=== PATIENT | male | born 1945 | race Caucasian/White ===

== ENCOUNTER 2017-09-03 19:14 | Outpatient (CLI) | payer MEDICARE | END 2017-09-03 19:15 | disposition short-term general hospital (02) | LOC: EMS 19:14 | PROVIDERS: ATTEND Surgery | DX: R55 Syncope and collapse (principal) | CPT/HCPCS: A0170; A0425; A0427 ==

== ENCOUNTER 2020-04-23 12:56 | Outpatient (CLI) | payer MEDICARE | END 2020-04-23 12:57 | disposition home or self-care (01) | LOC: COV 12:56 | PROVIDERS: ATTEND Family Medicine | DX: R50.9 Fever, unspecified (principal); Z20.828 Contact with and (suspected) exposure to other viral communicable diseases; R05 Cough; R06.02 Shortness of breath; M79.10 Myalgia, unspecified site; R53.83 Other fatigue; J02.9 Acute pharyngitis, unspecified; R09.81 Nasal congestion ==

== ENCOUNTER 2021-04-17 17:02 | Outpatient (CLI) | payer MEDICARE | END 2021-04-17 17:03 | disposition short-term general hospital (02) | LOC: EMS 17:02 | DX: R47.81 Slurred speech (principal); R29.898 Other symptoms and signs involving the musculoskeletal system; R29.810 Facial weakness; R41.89 Other symptoms and signs involving cognitive functions and awareness | CPT/HCPCS: A0425; A0427 ==

== ENCOUNTER 2021-06-20 07:57 | Outpatient (CLI) | payer MEDICARE | END 2021-06-20 07:58 | disposition home or self-care (01) | LOC: LAB.S 07:57 | PROVIDERS: ATTEND Internal Medicine Cardiovascular Disease | DX: I48.91 Unspecified atrial fibrillation (principal); I63.412 Cerebral infarction due to embolism of left middle cerebral artery | CPT/HCPCS: 36416; 85610 ==

== ENCOUNTER 2021-06-23 08:04 | Outpatient (CLI) | payer MEDICARE | END 2021-06-23 08:05 | disposition home or self-care (01) | LOC: LAB.S 08:04 | PROVIDERS: ATTEND Internal Medicine Cardiovascular Disease | DX: I48.91 Unspecified atrial fibrillation (principal); I63.412 Cerebral infarction due to embolism of left middle cerebral artery | CPT/HCPCS: 36416; 85610 ==

== ENCOUNTER 2021-06-27 10:02 | Outpatient (CLI) | payer MEDICARE | END 2021-06-27 10:03 | disposition home or self-care (01) | LOC: LAB.S 10:02 | PROVIDERS: ATTEND Internal Medicine Cardiovascular Disease | DX: I48.91 Unspecified atrial fibrillation (principal); I63.412 Cerebral infarction due to embolism of left middle cerebral artery | CPT/HCPCS: 36416; 85610 ==

== ENCOUNTER 2021-07-02 07:32 | Outpatient (CLI) | payer MEDICARE | END 2021-07-02 07:33 | disposition home or self-care (01) | LOC: LAB.S 07:32 | PROVIDERS: ATTEND Internal Medicine Cardiovascular Disease | DX: I48.91 Unspecified atrial fibrillation (principal); I63.412 Cerebral infarction due to embolism of left middle cerebral artery | CPT/HCPCS: 36416; 85610 ==

== ENCOUNTER 2021-07-07 07:33 | Outpatient (CLI) | payer MEDICARE | END 2021-07-07 07:34 | disposition home or self-care (01) | LOC: LAB.S 07:33 | PROVIDERS: ATTEND Internal Medicine Cardiovascular Disease | DX: I48.91 Unspecified atrial fibrillation (principal); I63.412 Cerebral infarction due to embolism of left middle cerebral artery | CPT/HCPCS: 36416; 85610 ==

== ENCOUNTER 2021-07-11 10:08 | Outpatient (CLI) | payer MEDICARE | END 2021-07-11 10:09 | disposition home or self-care (01) | LOC: LAB.S 10:08 | PROVIDERS: ATTEND Internal Medicine Cardiovascular Disease | DX: I48.91 Unspecified atrial fibrillation (principal); I63.412 Cerebral infarction due to embolism of left middle cerebral artery | CPT/HCPCS: 36416; 85610 ==

== ENCOUNTER 2021-07-18 08:00 | Outpatient (CLI) | payer MEDICARE | END 2021-07-18 23:59 | disposition home or self-care (01) | LOC: LAB.S 08:00 | PROVIDERS: ATTEND Internal Medicine Cardiovascular Disease | DX: I48.91 Unspecified atrial fibrillation (principal); I63.412 Cerebral infarction due to embolism of left middle cerebral artery | CPT/HCPCS: 36416; 85610 ==

== ENCOUNTER 2021-08-07 07:50 | Outpatient (CLI) | payer MEDICARE | END 2021-08-07 07:51 | disposition home or self-care (01) | LOC: LAB.S 07:50 | PROVIDERS: ATTEND Internal Medicine Cardiovascular Disease | DX: I48.91 Unspecified atrial fibrillation (principal); I63.412 Cerebral infarction due to embolism of left middle cerebral artery | CPT/HCPCS: 36416; 85610 ==

== ENCOUNTER 2021-09-04 08:01 | Outpatient (CLI) | payer MEDICARE | END 2021-09-04 08:02 | disposition home or self-care (01) | LOC: LAB.S 08:01 | PROVIDERS: ATTEND Internal Medicine Cardiovascular Disease | DX: I48.91 Unspecified atrial fibrillation (principal); I63.412 Cerebral infarction due to embolism of left middle cerebral artery | CPT/HCPCS: 36416; 85610 ==

== ENCOUNTER 2021-10-02 07:22 | Outpatient (CLI) | payer MEDICARE | END 2021-10-02 07:23 | disposition home or self-care (01) | LOC: LAB.S 07:22 | PROVIDERS: ATTEND Internal Medicine Cardiovascular Disease | DX: I48.91 Unspecified atrial fibrillation (principal); I63.412 Cerebral infarction due to embolism of left middle cerebral artery | CPT/HCPCS: 36416; 85610 ==

== ENCOUNTER 2021-11-04 07:24 | Outpatient (CLI) | payer MEDICARE | END 2021-11-04 07:25 | disposition home or self-care (01) | LOC: LAB.S 07:24 | PROVIDERS: ATTEND Internal Medicine Cardiovascular Disease | DX: I48.91 Unspecified atrial fibrillation (principal); I63.412 Cerebral infarction due to embolism of left middle cerebral artery | CPT/HCPCS: 36416; 85610 ==

== ENCOUNTER 2021-12-04 07:24 | Outpatient (CLI) | payer MEDICARE | END 2021-12-04 07:25 | disposition home or self-care (01) | LOC: LAB.S 07:24 | PROVIDERS: ATTEND Internal Medicine Cardiovascular Disease | DX: I48.91 Unspecified atrial fibrillation (principal); I63.412 Cerebral infarction due to embolism of left middle cerebral artery | CPT/HCPCS: 36416; 85610 ==

== ENCOUNTER 2022-01-20 07:19 | Outpatient (CLI) | payer MEDICARE | END 2022-01-20 07:20 | disposition home or self-care (01) | LOC: LAB.S 07:19 | PROVIDERS: ATTEND Internal Medicine Cardiovascular Disease | DX: I48.91 Unspecified atrial fibrillation (principal); I63.412 Cerebral infarction due to embolism of left middle cerebral artery | CPT/HCPCS: 36416; 85610 ==

== ENCOUNTER 2022-03-03 07:15 | Outpatient (CLI) | payer MEDICARE | END 2022-03-03 07:16 | disposition home or self-care (01) | LOC: LAB.S 07:15 | PROVIDERS: ATTEND Internal Medicine Cardiovascular Disease | DX: I48.91 Unspecified atrial fibrillation (principal); I63.412 Cerebral infarction due to embolism of left middle cerebral artery | CPT/HCPCS: 36416; 85610 ==

== ENCOUNTER 2022-03-27 07:16 | Outpatient (CLI) | payer MEDICARE | END 2022-03-27 07:17 | disposition home or self-care (01) | LOC: LAB.S 07:16 | PROVIDERS: ATTEND Internal Medicine Cardiovascular Disease | DX: I48.91 Unspecified atrial fibrillation (principal); I63.412 Cerebral infarction due to embolism of left middle cerebral artery | CPT/HCPCS: 36416; 85610 ==

== ENCOUNTER 2022-05-06 07:16 | Outpatient (CLI) | payer MEDICARE | END 2022-05-06 07:17 | disposition home or self-care (01) | LOC: LAB.S 07:16 | PROVIDERS: ATTEND Internal Medicine Cardiovascular Disease | DX: I48.91 Unspecified atrial fibrillation (principal); I63.412 Cerebral infarction due to embolism of left middle cerebral artery | CPT/HCPCS: 36416; 85610 ==

== ENCOUNTER 2022-05-22 07:16 | Outpatient (CLI) | payer MEDICARE | END 2022-05-22 07:17 | disposition home or self-care (01) | LOC: LAB.S 07:16 | PROVIDERS: ATTEND Internal Medicine Cardiovascular Disease | DX: I48.91 Unspecified atrial fibrillation (principal); I63.412 Cerebral infarction due to embolism of left middle cerebral artery | CPT/HCPCS: 36416; 85610 ==

== ENCOUNTER 2022-07-01 07:19 | Outpatient (CLI) | payer MEDICARE | END 2022-07-01 07:20 | disposition home or self-care (01) | LOC: LAB.S 07:19 | PROVIDERS: ATTEND Internal Medicine Cardiovascular Disease | DX: I48.91 Unspecified atrial fibrillation (principal); I63.412 Cerebral infarction due to embolism of left middle cerebral artery | CPT/HCPCS: 36416; 85610 ==

== ENCOUNTER 2022-08-12 07:09 | Outpatient (CLI) | payer MEDICARE | END 2022-08-12 07:10 | disposition home or self-care (01) | LOC: LAB.S 07:09 | PROVIDERS: ATTEND Internal Medicine Cardiovascular Disease | DX: I48.91 Unspecified atrial fibrillation (principal); I63.412 Cerebral infarction due to embolism of left middle cerebral artery | CPT/HCPCS: 36416; 85610 ==

== ENCOUNTER 2022-09-23 07:22 | Outpatient (CLI) | payer MEDICARE | END 2022-09-23 07:23 | disposition home or self-care (01) | LOC: LAB.S 07:22 | PROVIDERS: ATTEND Internal Medicine Cardiovascular Disease | DX: I48.91 Unspecified atrial fibrillation (principal); I63.412 Cerebral infarction due to embolism of left middle cerebral artery | CPT/HCPCS: 36416; 85610 ==

== ENCOUNTER 2022-10-07 07:29 | Outpatient (CLI) | payer MEDICARE | END 2022-10-07 07:30 | disposition home or self-care (01) | LOC: LAB.S 07:29 | PROVIDERS: ATTEND Internal Medicine Cardiovascular Disease | DX: I48.91 Unspecified atrial fibrillation (principal); I63.412 Cerebral infarction due to embolism of left middle cerebral artery | CPT/HCPCS: 36416; 85610 ==

== ENCOUNTER 2022-11-05 07:05 | Outpatient (CLI) | payer MEDICARE | END 2022-11-05 07:06 | disposition home or self-care (01) | LOC: LAB.S 07:05 | PROVIDERS: ATTEND Internal Medicine Cardiovascular Disease | DX: I48.91 Unspecified atrial fibrillation (principal); I63.412 Cerebral infarction due to embolism of left middle cerebral artery | CPT/HCPCS: 36416; 85610 ==

== ENCOUNTER 2022-12-03 09:10 | Outpatient (CLI) | payer MEDICARE | END 2022-12-03 09:11 | disposition home or self-care (01) | LOC: LAB.S 09:10 | PROVIDERS: ATTEND Internal Medicine Cardiovascular Disease | DX: I48.91 Unspecified atrial fibrillation (principal); I63.412 Cerebral infarction due to embolism of left middle cerebral artery | CPT/HCPCS: 36416; 85610 ==

== ENCOUNTER 2023-01-14 09:49 | Outpatient (CLI) | payer MEDICARE | END 2023-01-14 09:50 | disposition home or self-care (01) | LOC: LAB.S 09:49 | PROVIDERS: ATTEND Internal Medicine Cardiovascular Disease | DX: I48.91 Unspecified atrial fibrillation (principal); I63.412 Cerebral infarction due to embolism of left middle cerebral artery | CPT/HCPCS: 36416; 85610 ==

== ENCOUNTER 2023-03-04 10:39 | Outpatient (CLI) | payer MEDICARE | END 2023-03-04 10:40 | disposition home or self-care (01) | LOC: LAB.S 10:39 | PROVIDERS: ATTEND Internal Medicine Cardiovascular Disease | DX: I48.91 Unspecified atrial fibrillation (principal); I63.412 Cerebral infarction due to embolism of left middle cerebral artery | CPT/HCPCS: 36416; 85610 ==

== ENCOUNTER 2023-04-15 08:43 | Outpatient (CLI) | payer MEDICARE | END 2023-04-15 08:44 | disposition home or self-care (01) | LOC: LAB.S 08:43 | PROVIDERS: ATTEND Internal Medicine Cardiovascular Disease | DX: I48.91 Unspecified atrial fibrillation (principal); I63.412 Cerebral infarction due to embolism of left middle cerebral artery | CPT/HCPCS: 36416; 85610 ==

== ENCOUNTER 2023-05-31 10:12 | Outpatient (CLI) | payer MEDICARE | END 2023-05-31 10:13 | disposition home or self-care (01) | LOC: LAB.S 10:12 | PROVIDERS: ATTEND Internal Medicine Cardiovascular Disease | DX: I48.91 Unspecified atrial fibrillation (principal); I63.412 Cerebral infarction due to embolism of left middle cerebral artery | CPT/HCPCS: 36416; 85610 ==

== ENCOUNTER 2023-07-12 08:31 | Outpatient (CLI) | payer MEDICARE | END 2023-07-12 08:32 | disposition home or self-care (01) | LOC: LAB.S 08:31 | PROVIDERS: ATTEND Internal Medicine Cardiovascular Disease | DX: I48.91 Unspecified atrial fibrillation (principal); I63.412 Cerebral infarction due to embolism of left middle cerebral artery | CPT/HCPCS: 36416; 85610 ==

== ENCOUNTER 2023-08-23 09:42 | Outpatient (CLI) | payer MEDICARE | END 2023-08-23 09:43 | disposition home or self-care (01) | LOC: LAB.S 09:42 | PROVIDERS: ATTEND Internal Medicine Cardiovascular Disease | DX: I48.91 Unspecified atrial fibrillation (principal); I63.412 Cerebral infarction due to embolism of left middle cerebral artery | CPT/HCPCS: 36416; 85610 ==

== ENCOUNTER 2023-09-27 11:11 | Outpatient (CLI) | payer MEDICARE | END 2023-09-27 11:12 | disposition home or self-care (01) | LOC: LAB.S 11:11 | PROVIDERS: ATTEND Internal Medicine Cardiovascular Disease | DX: I48.91 Unspecified atrial fibrillation (principal); I63.412 Cerebral infarction due to embolism of left middle cerebral artery | CPT/HCPCS: 36416; 85610 ==

== ENCOUNTER 2023-11-08 07:07 | Outpatient (CLI) | payer MEDICARE | END 2023-11-08 07:08 | disposition home or self-care (01) | LOC: LAB.S 07:07 | PROVIDERS: ATTEND Internal Medicine Cardiovascular Disease | DX: I48.91 Unspecified atrial fibrillation (principal); I63.412 Cerebral infarction due to embolism of left middle cerebral artery | CPT/HCPCS: 36416; 85610 ==

== ENCOUNTER 2023-12-06 07:21 | Outpatient (CLI) | payer MEDICARE | END 2023-12-06 07:22 | disposition home or self-care (01) | LOC: LAB.S 07:21 | PROVIDERS: ATTEND Internal Medicine Cardiovascular Disease | DX: I48.91 Unspecified atrial fibrillation (principal); I63.412 Cerebral infarction due to embolism of left middle cerebral artery | CPT/HCPCS: 36416; 85610 ==

== ENCOUNTER 2024-01-07 07:17 | Outpatient (CLI) | payer MEDICARE | END 2024-01-07 07:18 | disposition home or self-care (01) | LOC: LAB.S 07:17 | PROVIDERS: ATTEND Internal Medicine Cardiovascular Disease | DX: I48.91 Unspecified atrial fibrillation (principal); I63.412 Cerebral infarction due to embolism of left middle cerebral artery | CPT/HCPCS: 36416; 85610 ==

== ENCOUNTER 2024-02-04 06:59 | Outpatient (CLI) | payer MEDICARE | END 2024-02-04 07:00 | disposition home or self-care (01) | LOC: LAB.S 06:59 | PROVIDERS: ATTEND Internal Medicine Cardiovascular Disease | DX: I48.91 Unspecified atrial fibrillation (principal); I63.412 Cerebral infarction due to embolism of left middle cerebral artery | CPT/HCPCS: 36416; 85610 ==